=== PATIENT | female | born 1975 | race Caucasian/White ===

== ENCOUNTER 2024-05-01 20:12 | Emergency (ER) | payer OTHER ==
[~2024-05-01] VITALS: Ht 157.5 cm; Wt 63.0 kg
[2024-05-01] MEDS ORDERED: SODIUM BICARBONATE SYR 50 MEQ/50 ML DISP.SYRIN ONE ×2 (20:34→20:35)
[2024-05-01] MEDS: IV NS 0.9% 1,000 ML BAG IV ONE (20:35)
[2024-05-01] MEDS: SODIUM BICARBONATE SYR 50 MEQ/50 ML DISP.SYRIN IV ONE ×2 (20:35)
[2024-05-01 20:45] LABS: BASOPHILS # (AUTO) 0.1 K/uL (0.0-0.2); BASOPHILS % (AUTO) 1.3 % (0.0-2.0); EOSINOPHILS # (AUTO) 0.2 K/uL (0.0-0.7); EOSINOPHILS % (AUTO) 4.4 % (0.0-6.0); HEMATOCRIT 38 % (33-45); HEMOGLOBIN 13.4 g/dL (11.5-14.8); LYMPHOCYTES # (AUTO) 1.6 K/uL (0.8-4.8); LYMPHOCYTES % (AUTO) 32.7 % (20.0-44.0); MEAN CORPUSCULAR HEMOGLOBIN 35 PG (26.0-33.0); MEAN CORPUSCULAR HGB CONC 35 g/dl (31.0-36.0); MEAN CORPUSCULAR VOLUME 100 fL (82-100); MONOCYTES # (AUTO) 0.4 K/uL (0.1-1.30); MONOCYTES % (AUTO) 8.4 % (2.0-12.0); NEUTROPHILS # (AUTO) 2.6 K/uL (1.8-8.9); NEUTROPHILS % (AUTO) 53.2 % (43.0-81.0); PLATELET COUNT (AUTO) 239 K/uL (150-450); RED BLOOD CELL COUNT(AUTO) 3.85 MIL/uL (4.0-5.2); RED CELL DISTRIBUTION WIDTH 13.5 % (11.5-15.0); WHITE BLOOD COUNT (AUTO) 4.8 K/uL (4.3-11.0)
[2024-05-01 21:04] LABS: ALBUMIN 3.5 g/dL (3.4-5.0); ALCOHOL, BLOOD 341 mg/dL (0-10); ALKALINE PHOSPHATASE 97 U/L (46-116); BILIRUBIN,DIRECT 0.1 mg/dL (0.0-0.2); BILIRUBIN,TOTAL 0.6 mg/dL (0.2-1.0); CARBON DIOXIDE 24 mmol/L (21-32); CHLORIDE 105 mmol/L (98-107); CREATININE 0.6 mg/dL (0.6-1.3); GLUCOSE 156 mg/dL (74-106); POTASSIUM 4.4 mmol/L (3.5-5.1); SODIUM SERUM 140 mmol/L (136-145); TOTAL PROTEIN, SERUM 7.2 g/dL (6.4-8.2); UREA NITROGEN, BLOOD 14 mg/dL (7-18)
[2024-05-01 21:08] LABS: SALICYLATE 1.7 mg/dL (2.8-20.0)
[2024-05-01 21:09] LABS: ACETAMINOPHEN 0 ug/ml (10-30)
[2024-05-01 21:21] LABS: APPEARANCE,URINE CLEAR (CLEAR); BILIRUBIN,URINE NEGATIVE (NEGATIVE); BLOOD, URINE TRACE-INTA Ery/uL (NEGATIVE); COLOR,URINE YELLOW (YELLOW); KETONES,URINE NEGATIVE (NEGATIVE); LEUKOCYTE ESTERASE ,URINE NEGATIVE (NEGATIVE); NITRITE, URINE NEGATIVE (NEGATIVE); PROTEIN,URINE NEGATIVE (NEGATIVE); UGLUCOSE NEGATIVE (NEGATIVE); UROBILINOGEN,URINE 0.2 EU/dL (0.2)
[2024-05-01 21:22] LABS: ASPARTATE AMINOTRANSFERASE 69 U/L (15-37)
[2024-05-01 21:23] LABS: ALANINE AMINOTRANSFERASE 39 U/L (12-78)
[2024-05-01 21:23] LABS: PREGNANCY TEST URINE QUAL NEGATIVE (NEGATIVE)
[2024-05-01 21:24] LABS: SQUAMOUS EPITHELIAL CELL,UR Many /HPF (None Seen)
[2024-05-01 21:25] LABS: ADD URINE CULTURE YES; BACTERIA,URINE Moderate /HPF (None Seen); RBC,URINE 0-2 /HPF (0-2); WBC,URINE 0-2 /HPF (0-3)
[2024-05-01 21:29] LABS: AMPHETAMINE, URINE NEGATIVE (NEGATIVE); BARBITURATE, URINE NEGATIVE (NEGATIVE); BENZODIAZEPINE, URINE NEGATIVE (NEGATIVE); CANNABINOID, URINE NEGATIVE (NEGATIVE); COCCAINE, URINE NEGATIVE (NEGATIVE); OPIATE, URINE NEGATIVE (NEGATIVE); PHENCYCLIDINE SCREEN,URINE NEGATIVE (NEGATIVE)
[2024-05-01 22:05] LABS: ABG BASE EXCESS -2.9 mmol/L (-2.0-3.0); ABG OXYGEN SATURATION 95.6 % (94.0-98.0); ABG PCO2 39.9 mmHg (32.0-45.0); ABG PH 7.363 (7.350-7.450); ABG PO2 89.2 mmHg (83.0-108.0); ABG TOTAL HEMOGLOBIN 12.6 G/dL (12.0-16.0); COHb 0.3 % (0.5-1.5); MetHb 0.3 % (0.0-1.5); SITE, ABG RIGHT RADIAL
[2024-05-02] MEDS: OLANZAPINE 10 MG VIAL IM ONE (07:30)
[2024-05-02 11:05] VITALS: BP 146/95; TEMP 98; O2SAT 98
== END 2024-05-02 11:05 | disposition home or self-care (01) ==
LOC: ER 20:20
DX: R45.851 Suicidal ideations (principal); F10.129 Alcohol abuse with intoxication, unspecified; R53.83 Other fatigue; I45.10 Unspecified right bundle-branch block; Y90.8 Blood alcohol level of 240 mg/100 ml or more; Z20.822 Contact with and (suspected) exposure to COVID-19
CPT/HCPCS: 99291; 96374; 96361; 93005 ×3; 82803; 71045; 85025; 80048; 87086; 80076; 84703; 81001; 36415 ×2; 84484; 84702; 36600; 87426; 80143; 80320 ×2; 80307; J3490 ×2; J7030 ×2; G0480

== ENCOUNTER 2024-07-09 20:52 | Emergency (ER) | payer BC, OTHER ==
[~2024-07-09] VITALS: Ht 162.6 cm; Wt 59.0 kg
[2024-07-09 22:14] VITALS: BP 124/81; TEMP 97.9; O2SAT 99
== END 2024-07-10 00:03 | disposition left against medical advice (07) ==
LOC: ER 20:53
DX: M25.579 Pain in unspecified ankle and joints of unspecified foot (principal); Z53.21 Procedure and treatment not carried out due to patient leaving prior to being seen by health care provider